=== PATIENT | female | born 1945 | race Two or more races ===

== ENCOUNTER 2017-10-15 07:30 | Outpatient (CLI) | payer OTHER ==
[~2017-10-15] VITALS: Ht 160 cm; Wt 74.4 kg
== END 2017-10-15 07:45 | disposition home or self-care (01) ==
LOC: OFIC 805 07:30
DX: H93.13 Tinnitus, bilateral (principal); H90.41 Sensorineural hearing loss, unilateral, right ear, with unrestricted hearing on the contralateral side; R42 Dizziness and giddiness; H61.21 Impacted cerumen, right ear